=== PATIENT | male | born 1995 | race Caucasian/White ===

== ENCOUNTER → 2022-08-06 | Outpatient (CLI) | payer OTHER ==
[2022-08-06 10:34] LABS: HEMATOCRIT 45.8 % (42.0-52.0); HEMOGLOBIN 15.4 g/dl (13.5-18.0); MEAN CELL VOLUME 85 fl (80.0-100.0); MEAN CORPUSCULAR HEMOGLOBIN 29 pg (27-31); MEAN CORPUSCULAR HGB CONC 34 g/dl (33.0-37.0); PLATELET COUNT 272 K/mm3 (130-400); RED BLOOD COUNT 5.39 M/mm3 (4.20-5.60); REDCELL DISTRIBUTION WIDTH-CV 12.2 % (11.5-14.5)
[2022-08-06 10:49] LABS: C-REACTIVE PROTEIN 0.08 mg/dL (0.00-0.50); CALCIUM 9.3 mg/dL (8.4-10.2); CREATININE, serum 1.01 mg/dL (0.72-1.25); POTASSIUM 4.4 mmol/L (3.5-4.5)
[2022-08-06 11:17] LABS: ERYTHROCYTE SEDIMENTATION RATE 1 mm/hr (0-15)
== END ==
LOC: COL.LAB 09:40
PROVIDERS: Nurse Practitioner
DX: I45.5 Other specified heart block (principal)

== ENCOUNTER 2022-09-02 11:57 | Day surgery (SDC) | payer OTHER ==
[~2022-09-02] VITALS: Ht 180.3 cm; Wt 97.2 kg
[2022-09-02] VITALS (10 sets, daily range): BP systolic 111–133; BP diastolic 73–85; PULSE 45–61; TEMP 97.3
[2022-09-02 13:06] LABS: HEMOGLOBIN 14.8 g/dl (13.5-18.0); MEAN CELL VOLUME 87 fl (80.0-100.0); MEAN CORPUSCULAR HEMOGLOBIN 29 pg (27-31); MEAN CORPUSCULAR HGB CONC 33 g/dl (33.0-37.0); MEAN PLATELET VOLUME 9.9 fl (7.4-10.4); PLATELET COUNT 269 K/mm3 (130-400); REDCELL DISTRIBUTION WIDTH-CV 12.2 % (11.5-14.5)
[2022-09-02 13:25] LABS: CALCIUM 9.2 mg/dL (8.4-10.2); CREATININE, serum 0.83 mg/dL (0.72-1.25); POTASSIUM 3.9 mmol/L (3.5-4.5)
[2022-09-02 13:27] LABS: INR 1.1 (0.8-3.0); PROTHROMBIN TIME 12.5 SECONDS (9.7-12.8)
[2022-09-02 13:30] LABS: PARTIAL THROMBOPLASTIN TIME 31.7 SECONDS (26.0-37.0)
--- NOTE | 2022-09-02 14:13 | NUR ---
SEE MERGE FOR VITAL SIGNS, ASSESSMENT, INTERVENTIONS AND MEDICATIONS GIVEN.
--- NOTE | 2022-09-02 14:55 | NUR ---
Pt back to express unit after a negative heart cath. TR band to rt wrist, cms intact distal. Pt is alert and oriented, pwd, resp reg and unlabored. Report received from laboratory worker RN. Pt updated on poc, lunch ordered, call light in reach.
--- NOTE | 2022-09-02 16:22 | NUR ---
Pt doing fine during his recovery. Pt and I have reviewed dc/fu instructions together. Pt verbalizes understanding. Pt is eating lunch at this time.
--- NOTE | 2022-09-02 16:40 | NUR ---
3 CC REMOVED FROM BAND, BLEEDING NOTED IMMEDIATELY, 3 CC AIR REINSTILLED IN BAND, WILL BEGIN AGAIN IN 30 MINUTES
--- NOTE | 2022-09-02 18:00 | NUR ---
Pt ready for discharge. we have reviewed dc/fu isntructions and pt denies questions. TR band has been deflated and site is dressed with bandaid, folded 2x2 and coban. cms remains intact distal. pt given tylenol as ordered for pain at puncture site. PT has been up and is steady on his feet. Pt refuses wheelchair and i ambulated with pt to exit where a friend picked him up.
== END 2022-09-02 18:27 | disposition home or self-care (01) ==
LOC: COL.CAR 11:57
PROVIDERS: Internal Medicine Interventional Cardiology
DX: R07.9 Chest pain, unspecified (principal); R42 Dizziness and giddiness; R94.39 Abnormal result of other cardiovascular function study; I45.5 Other specified heart block
CPT/HCPCS: C1769; J1644; J2250; J3010; Q9967